=== PATIENT | female | born 1960 | race Caucasian/White ===

== ENCOUNTER 2025-02-20 10:19 | Emergency (ER) | payer MEDICARE ==
[~2025-02-20] VITALS: Ht 167.6 cm; Wt 96.2 kg
[2025-02-20] MEDS ORDERED: LISINOPRIL-HCT1 EAC1 (10:50)
[2025-02-20] MEDS ORDERED: VALTREX500 MG PO (10:50)
[2025-02-20] MEDS ORDERED: NEURONTIN100 MG PO (10:50)
[2025-02-20] MEDS ORDERED: OXYBUTYNIN CHLOR5 M1 PO (10:50)
[2025-02-20] MEDS ORDERED: BACLOFEN10 MG PO (13:17)
[2025-02-20 13:28] VITALS: PULSE 70; RESP 18; TEMP 97.7; O2SAT 97
== END 2025-02-20 13:28 | disposition home or self-care (01) ==
LOC: FSED 10:35
DX: M79.662 Pain in left lower leg (principal); M79.18 Myalgia, other site; I10 Essential (primary) hypertension
CPT/HCPCS: 93971; 99284